=== PATIENT | female | born 1990 | race African-American/Black ===

== ENCOUNTER 2016-10-12 22:46 | Emergency (ER) | payer MEDICARE ==
[2012-12-14 12:55] VITALS: BMI 21.0
[2016-10-13 00:39] LABS: BASOPHILS 0.2 % (0.0-2.0); EOSINOPHILS 0.6 % (0-7); HEMATOCRIT 38.9 % (36.0-48.0); HEMOGLOBIN 13.4 g/dL (12-16); IMMATURE GRANULOCYTES 0.2 % (0-5); LYMPHOCYTES 13.3 % (15-50); MCH 29.4 pg (26.0-34.0); MCHC 34.4 g/dL (31.0-37.0); MCV 85.3 fL (80.0-100.0); MEAN PLATELET VOLUME 9.6 fL (7.4-10.4); NEUTROPHILS 80.7 % (40-80); RBC 4.56 10x6/uL (4.00-5.40); WBC 9.3 10x3/uL (4.8-10.8)
[2016-10-13 00:54] LABS: PLATELET COUNT 257 10x3/uL (130-400)
[2016-10-13 00:55] LABS: APPEARANCE HAZY (CLEAR); BACTERIA NONE SEEN /hpf (NONE SEEN); BILIRUBIN NEGATIVE (NEGATIVE); COLOR DK YELLOW (YELLOW); EPITHELIAL CELLS 0-5 /hpf (0-5); GLUCOSE NEGATIVE (NEGATIVE); KETONE LARGE mg/dL (NEGATIVE); LEUKOCYTE ESTERASE NEGATIVE (NEGATIVE); NITRITE NEGATIVE (NEGATIVE); PROTEIN TRACE mg/dL (NEGATIVE); RED CELLS - URINE 0-5 /hpf (0-5); SPECIFIC GRAVITY 1.025 (1.005-1.020); UROBILINOGEN NORMAL (NORMAL); WHITE CELLS - URINE 0-5 /hpf (0-5)
[2016-10-13 01:01] LABS: HCG SERUM POSITIVE (NEGATIVE)
[2016-10-13 01:36] LABS: ALBUMIN 4.2 g/dL (3.4-5.0); ALKALINE PHOSPHATASE 50 U/L (46-116); ALT (SGPT) 15 U/L (10-68); AMYLASE - SERUM 115 U/L (25-115); BILIRUBIN - TOTAL 0.37 mg/dL (0.2-1.3); CALC OSMOLALITY 274 mosm/kg (275-300); CHLORIDE - SERUM 103 mmol/L (98-107); CREATININE - SERUM 0.7 mg/dL (0.6-1.3); GLUCOSE 124 mg/dL (74-106); HCG - QUANTITATIVE (MATERNAL) 44174 mIU/mL; LIPASE 233 U/L (73-393); POTASSIUM - SERUM 3.7 mmol/L (3.5-5.1); PROTEIN - SERUM 7.9 g/dL (6.4-8.2); SODIUM 138 mmol/L (136-145); UREA NITROGEN 8 mg/dL (7-18); eGFR NON AFRICAN AMERICAN > 90 mL/min (90-120)
== END 2016-10-13 01:32 | disposition home or self-care (01) ==
LOC: D.ER 22:46
PROVIDERS: Family Medicine
DX: R11.10 Vomiting, unspecified (principal)

== ENCOUNTER 2016-10-14 11:24 | Emergency (ER) | payer MEDICARE ==
[2012-12-14 12:55] VITALS: BMI 21.0
== END 2016-10-14 13:53 | disposition home or self-care (01) ==
LOC: D.ER 11:24
DX: N76.0 Acute vaginitis (principal); R11.10 Vomiting, unspecified

== ENCOUNTER 2016-11-29 15:50 | Emergency (ER) | payer MEDICARE ==
[2012-12-14 12:55] VITALS: BMI 21.0
[2016-11-29 16:37] LABS: BASOPHILS 0.1 % (0-2); EOSINOPHILS 0.2 % (0-7); HEMATOCRIT 39.4 % (36.0-48.0); HEMOGLOBIN 13.7 g/dL (12-16); IMMATURE GRANULOCYTES 0.3 % (0-5); LYMPHOCYTES 15.6 % (15-50); MCH 29.5 pg (26.0-34.0); MCHC 34.8 g/dL (31.0-37.0); MCV 84.9 fL (80.0-100.0); MEAN PLATELET VOLUME 9.5 fL (7.4-10.4); MONOCYTES 6.7 % (2-11); NEUTROPHILS 77.1 % (40-80); PLATELET COUNT 264 10x3/uL (130-400); RBC 4.64 10x6/uL (4.00-5.40); RDW 12.9 % (11.5-14.5); WBC 9.2 10x3/uL (4.8-10.8)
[2016-11-29 16:52] LABS: ALBUMIN 4.1 g/dL (3.4-5.0); ALKALINE PHOSPHATASE 53 U/L (46-116); ALT (SGPT) 20 U/L (10-68); BILIRUBIN - TOTAL 0.29 mg/dL (0.2-1.3); CALC OSMOLALITY 269 mosm/kg (275-300); CALCIUM 9.8 mg/dL (8.5-10.1); CARBON DIOXIDE 26.3 mmol/L (21.0-32.0); CHLORIDE - SERUM 100 mmol/L (98-107); CREATININE - SERUM 0.8 mg/dL (0.6-1.3); GLUCOSE 96 mg/dL (74-106); POTASSIUM - SERUM 3.2 mmol/L (3.5-5.1); PROTEIN - SERUM 7.8 g/dL (6.4-8.2); SODIUM 136 mmol/L (136-145); UREA NITROGEN 8 mg/dL (7-18); eGFR NON AFRICAN AMERICAN > 90 mL/min (90-120)
== END 2016-11-29 20:39 | disposition home or self-care (01) ==
LOC: D.ER 15:50
PROVIDERS: Emergency Medicine
DX: O21.0 Mild hyperemesis gravidarum (principal); Z3A.15 15 weeks gestation of pregnancy

== ENCOUNTER → 2017-04-02 14:19 | Outpatient (CLI) | payer MEDICARE ==
[2012-12-14 12:55] VITALS: BMI 21.0
== END | disposition home or self-care (01) ==
LOC: D.LDO 14:19
DX: O36.5930 Maternal care for other known or suspected poor fetal growth, third trimester, not applicable or unspecified (principal); Z3A.30 30 weeks gestation of pregnancy

== ENCOUNTER → 2017-04-05 13:49 | Outpatient (CLI) | payer MEDICARE ==
[2012-12-14 12:55] VITALS: BMI 21.0
== END | disposition home or self-care (01) ==
LOC: D.LDO 13:49
DX: O36.5930 Maternal care for other known or suspected poor fetal growth, third trimester, not applicable or unspecified (principal); Z3A.31 31 weeks gestation of pregnancy

== ENCOUNTER → 2017-04-08 19:29 | Outpatient (CLI) | payer MEDICARE ==
[2012-12-14 12:55] VITALS: BMI 21.0
== END | disposition home or self-care (01) ==
LOC: D.LDO 19:29
DX: Z34.90 Encounter for supervision of normal pregnancy, unspecified, unspecified trimester (principal)

== ENCOUNTER → 2017-04-17 13:45 | Outpatient (CLI) | payer MEDICARE ==
[2012-12-14 12:55] VITALS: BMI 21.0
== END | disposition home or self-care (01) ==
LOC: D.LDO 13:45
DX: O36.5930 Maternal care for other known or suspected poor fetal growth, third trimester, not applicable or unspecified (principal); Z3A.32 32 weeks gestation of pregnancy

== ENCOUNTER → 2017-04-30 15:30 | Outpatient (CLI) | payer MEDICARE ==
[2012-12-14 12:55] VITALS: BMI 21.0
[~2017-04-30 15:30] MED LIST: PRENAVITE1 TAB PO; TYLENOL W/CODEI1 TAB PO
[2017-06-03 00:10] VITALS: BMI 26.7
== END | disposition home or self-care (01) ==
LOC: D.LDO 15:30
DX: O36.5930 Maternal care for other known or suspected poor fetal growth, third trimester, not applicable or unspecified (principal); Z3A.34 34 weeks gestation of pregnancy

== ENCOUNTER → 2017-05-04 12:10 | Outpatient (CLI) | payer MEDICARE ==
[2012-12-14 12:55] VITALS: BMI 21.0
[2017-06-03 00:10] VITALS: BMI 26.7
== END | disposition home or self-care (01) ==
LOC: D.LDO 12:10
DX: O36.5930 Maternal care for other known or suspected poor fetal growth, third trimester, not applicable or unspecified (principal); Z3A.35 35 weeks gestation of pregnancy

== ENCOUNTER → 2017-05-07 12:49 | Outpatient (CLI) | payer MEDICARE ==
[2012-12-14 12:55] VITALS: BMI 21.0
[2017-06-03 00:10] VITALS: BMI 26.7
== END | disposition home or self-care (01) ==
LOC: D.LDO 12:49
DX: O26.893 Other specified pregnancy related conditions, third trimester (principal); Z3A.35 35 weeks gestation of pregnancy

== ENCOUNTER → 2017-05-11 10:04 | Outpatient (CLI) | payer MEDICARE ==
[2012-12-14 12:55] VITALS: BMI 21.0
[2017-06-03 00:10] VITALS: BMI 26.7
== END | disposition home or self-care (01) ==
LOC: D.LDO 10:04
DX: O36.5930 Maternal care for other known or suspected poor fetal growth, third trimester, not applicable or unspecified (principal); Z3A.36 36 weeks gestation of pregnancy

== ENCOUNTER 2017-06-02 20:22 | Inpatient (IN) | payer MEDICARE ==
[~2017-06-02] VITALS: Ht 170.2 cm; Wt 77.1 kg
[2017-06-02 20:50] LABS: APPEARANCE HAZY (CLEAR); BILIRUBIN NEGATIVE (NEGATIVE); COLOR YELLOW (YELLOW); GLUCOSE NEGATIVE (NEGATIVE); KETONE NEGATIVE (NEGATIVE); NITRITE NEGATIVE (NEGATIVE); PROTEIN NEGATIVE (NEGATIVE); UROBILINOGEN NORMAL (NORMAL)
[2017-06-02] MEDS ORDERED: PRENAVITE1 TAB PO (20:53)
[2017-06-02 20:54] LABS: UDS - AMPHET NEGATIVE QUAL (NEGATIVE); UDS - BARB NEGATIVE QUAL (NEGATIVE); UDS - BENZO NEGATIVE QUAL (NEGATIVE); UDS - COCAINE NEGATIVE QUAL (NEGATIVE); UDS - OPIATE NEGATIVE QUAL (NEGATIVE); UDS - PCP NEGATIVE QUAL (NEGATIVE); UDS - THC POSITIVE QUAL (NEGATIVE)
[2017-06-02 20:57] LABS: BACTERIA MODERATE /hpf (NONE SEEN); RED CELLS - URINE 0-5 /hpf (0-5)
[2017-06-03 00:10] VITALS: BP 118/58; Ht 170.2 cm; Wt 77.1 kg
[2017-06-03 00:47] LABS: HEMATOCRIT 31.9 % (36.0-48.0); HEMOGLOBIN 10.5 g/dL (12-16); MCH 28.4 pg (26.0-34.0); MCHC 32.9 g/dL (31.0-37.0); MCV 86.2 fL (80.0-100.0); MEAN PLATELET VOLUME 9.6 fL (7.4-10.4); RBC 3.7 10x6/uL (4.00-5.40); RDW 12.9 % (11.5-14.5); WBC 12.8 10x3/uL (4.8-10.8)
--- NOTE | 2017-06-03 01:15 | NUR ---
PT TRANSFERRED TO ROOM 1257. SHOWERED BEFORE TRANSFER. ASSISTED TO BED. FRESH ICE WATER PROVIDED. S/O PRESENT IN ROOM AND SUPPORTIVE. BED IN LOWEST POSITION CALL LIGHT IN REACH. BIBI ARMANDO
--- NOTE | 2017-06-03 02:15 | NUR ---
PT C/O PAIN 01/28. MEDICATED WITH TYLENOL WITH CODEINE AT THIS TIME. SEE E-MAR FOR DOCUMENTATION. BIBI ARMANDO
--- NOTE | 2017-06-03 03:35 | NUR ---
ROOM CHECK, PT RESTING WITH EYES CLOSED. AWAKENS EASILY WITH VERBAL STIMULI. DENIES NEEDS AT THIS TIME. BIBI ARMANDO
--- NOTE | 2017-06-03 05:05 | NUR ---
PT RESTING WITH EYES CLOSED. RESP EVEN AND UNLABORED. BIBI ARMANDO
--- NOTE | 2017-06-03 06:58 | NUR ---
This rn along with Gina Garcia rn to room for bedside report but pt was sleeping with no distress. Left undisturbed at this time, report finished outside of pt room. Side rails noted to be up x 2 with bed low and call light in reach.
[2017-06-03 09:30] VITALS: BP 104/68
--- NOTE | 2017-06-03 09:30 | NUR ---
Pt awake and walking about room. Infant in crib at bedside. When questioned aobut pain pt rates at 7/10 since getting up and walking. Pain med offered and pt is agreeable. Assessment and vital signs as charted on flowsheet. Denies clots or heavy bleeding with voids. request large orange juice but otherwise no needs voiced.
--- NOTE | 2017-06-03 09:45 | NUR ---
Pain med given as charted on emar. Pt ask for only 1 tylenol #3, stating she did not want to be "really sleepy" Whiteboard updated with nurses/numbers, pain med times and goals. Pt denies any questions or concerns about plan of care at this time. Side rails up x 2 with phone and call light in reach.
--- NOTE | 2017-06-03 10:37 | NUR ---
infant taken back to room via crib by nursery nurse.
--- NOTE | 2017-06-03 13:30 | NUR ---
SBAR HANDOFF RECEIVED FROM Martin ARIAS RN. REMAINS STABLE IN ROOM. AMBULATION IN ROOM AND KELLY. REPORTS BURNING AT PERINEUM WHEN VOIDING; USING BETADINE MIX WITH WATER FOR PERINEAL CLEANSING AFTER EACH VOID. REPORTS FULLY SATURATED LESLYE PADS X 2 PER HOUR. FUNDUS FIRM AT UMBILICUS. DEMONSTRATES SKILL IN CHECKING AND MASSAGING FUNDUS IF BOGGY. REPORTS PAIN AT LEVEL 5 ON 0-10 SCALE. NO SIGNS OF RESP OR OTHER DISTRESS. BONDING WELL WITH INFANT.
--- NOTE | 2017-06-03 13:33 | NUR ---
Baby's Full Name: Michelle Tapia MOB: Jason Wood FOB: Thor Tapia Parachute Supervisor: Dr. Karlee Vaughan CM met with MOB, infant in her arms. LUCIA reports she lives with her mother, Kamryn Wood and her grandfather. She reports this is her first child. She reports she is disabled, on SSI. She reports FOB is involved. She reports her home is a safe environment with all working utilities. Confirmed home address and phone number on face sheet. She reports she has reliable transportation and a car seat for . She plans to apply for WIC once she is discharged from the hospital. She currently receives SNAP Benefits. She plans to bottle feed baby with formula. She states she has all necessary supplies for baby including diapers, clothing, bottles & crib. Discussed THC+ UDS. She reports she has used THC for approximately 8 years. She states she planned to stop when she found out she was but didn't want to cause harm to the baby by stopping abruptly. She states she continued to use it because "it keeps me at ease & eating", "I had terrible nausea". Explained [facility] referral has been made by nursing as required by Norberto's Law. Verbalized understanding. Spoke with nursery RN who states she is expecting a visit from [facility] this afternoon. CM will follow & assist as needed.
--- NOTE | 2017-06-03 14:15 | NUR ---
TYLENOL #3 X1 TAB GIVEN FOR PAIN RATED 5/10. PT REQUESTS ONLY HALF DOSE FOR PAIN IN ABD AND "BURNING" IN VAGINAL AREA. PT DENIES FURTHER NEEDS AT THIS TIME. WILL CONT TO MONITOR.
--- NOTE | 2017-06-03 14:45 | NUR ---
MOTHER STATES SHE HAS NOT SATURATED PERIPAD SINCE 1330. REMINDED TO KEEP PAD COUNT.
--- NOTE | 2017-06-03 15:17 | NUR ---
REPORTS CONTINUED PAIN AND REQUESTING ADDITIONAL PAIN MEDS. PO MEDS GIVEN PER ORDERS. TOWELS PROVIDED FOR SHOWER WITH INSTRUCTIONS. VISITORS TO ROOM.
--- NOTE | 2017-06-03 15:17 | NUR ---
ON PAIN REASSESSMENT, PT REPORTS PAIN 5 OUT OF 10 ON PAIN SCALE. REQUESTING ADDITIONAL PAIN MEDICATION CITING HAS BEEN WAITING TO NOT HURTSO MUCH TO TAKE A SHOWER. ADDITIONAL TYLENOL #3 GIVEN WELL MOTRIN AT THIS TIME. DISCUSSED PERICARE AND SHOWERING, QUESTIONS ANSWERED. C/L IN EASY REACH. INSTRUCTED TO NOTIFY STAFF IF NO RELIEF IN 30 MINUTES. VISITORS TO ROOM. STATES UNDERSTANDING.
--- NOTE | 2017-06-03 16:17 | NUR ---
PT AAOX3, AMBULATORY IN ROOM, SHOWERED, ADDITIONAL PILLOW PROVIDED UPON REQUEST, PAIN REASSESSMENT COMPLETED, STATES ADDITIONAL MEDS PROVIDED MUCH BETTER RELIEF. VISITORS TO ROOM.
--- NOTE | 2017-06-03 17:00 | NUR ---
PATIENT AWAKE AND ALERT SITTING UP IN BED HOLDING BABY. PATIENT REPORTS LOCHIA STILL HEAVY. NURSE OBSERVED LESLYE PAD IN BATHROOM 90% SATURATED THAT WAS CHANGED AROUND 3PM. MOM REPORTED THAT IT HAS DECREASED SOMEWHAT. FUNDUS FIRM AND BELOW UMB. MOM HAS BEEN AMBULATING IN ROOM WITHOUT REPORTS OF WEAKNESS OR DIZZINESS.
--- NOTE | 2017-06-03 17:45 | NUR ---
PATIENT AMBULATORY IN KELLY. SHE STATED SHE WAS GOING TO GO OUTSIDE FOR A FEW MINUTES. PATIENT ACCOMPANIED BY SIGNIFICANT OTHER.
--- NOTE | 2017-06-03 18:00 | NUR ---
PATIENT TO NURSERY TO TAKE BABY BACK TO ROOM.
--- NOTE | 2017-06-03 19:40 | NUR ---
PT RECEIVED TO MY CARE IN ROOM 1257. PT RESTING IN BED IN SEMI-FOWLERS POSITION, IN NO ACUTE DISTRESS. PT IS A 26YO G2 NOW WITH OF VIABLE MALE YESTERDAY @ 2353. @ 39.3WKS GESTATION. DELIVERY COMPLICATED BY 1ST DEGREE VAGINAL LACERATION, WITH NO REPAIR, AND PRECIPITOUS DELIVERY. AAOX3. LUNGS CTAB. HR REGULAR. ABDOMEN SOFT AND NON TENDER TO PALPATION. FUNDUS FIRM AND ML @ U/-2. LOCHIA RUBRA SMALL. PERINIUM APPEARS TO BE INTACT WITH MINIMAL SWELLING NOTED. LESLYE PAD AND PANTIES IN PLACE. PT DENIES DIFFICULTY VOIDING. STATES SHE HAS PASSED GAS SINCE BUT HAS NOT HAD A BM. PT TOLERATING REGULAR DIET. NO SWELLING NOTED TO UPPER OR LOWER EXTREMITIES BILATERALLY. NO IV ACCESS. PT C/O PAIN, RATES 7/10, REQUESTS MEDICATION. 2 TABS TYLENOL #3 PROVIDED TO PT AT THIS TIME. PT DENIES ANY FURTHER NEEDS. BED IN LOW POSITION, SIDE RAILS UP TIMES 2, CALL LIGHT AND PHONE IN REACH. SO REMAINS AT PT BS FOR SUPPORT AND ASSISTANCE. INFANT REMAINS AT PT BS FOR COUPLET CARE. WILL CONT TO MONITOR PT STATUS.
[2017-06-03 19:46] VITALS: BP 121/78
--- NOTE | 2017-06-03 20:29 | NUR ---
RN TO PT BS FOR ROUNDS. PT RESTING IN BED IN SEMI-FOWLERS POSITION, HOLDING . PT IN NO ACUTE DISTRESS. REASSESS OF PT PAIN LEVEL 10/29. PT DENIES ANY NEEDS AT THIS TIME. BED IN LOW POSITION, SIDE RAILS UP TIMES 2, CALL LIGHT AND PHONE IN REACH. SO REMAINS AT PT BS FOR SUPPORT AND ASSISTANCE. REMAINS AT PT BS FOR COUPLET CARE. WILL CONT TO MONITOR PT STATUS.
--- NOTE | 2017-06-03 21:34 | NUR ---
PT AMBULATES TO LABOR AND DELIVERY DESK. AT LABOR AND DELIVERY DESK, SWADDLED IN OPEN CRIB, FOR OBSERVATION. PT TRANSPORTS VIA CRIB TO PP ROOM. PT DENIES ANY NEEDS AT THIS TIME. SO REMAINS WITH PT FOR SUPPORT AND ASSISTANCE. WILL CONT TO MONITOR PT STATUS.
--- NOTE | 2017-06-03 23:06 | NUR ---
RN TO PT BS FOR ROUNDS. PT RESTING IN BED IN SEMI-FOWLERS POSITION, HOLDING . PT IN NO ACUTE DISTRESS. PT DENIES ANY NEEDS AT THIS TIME. BED IN LOW POSITION, SIDE RAILS UP TIMES 2, CALL LIGHT AND PHONE IN REACH. SO REMAINS AT PT BS FOR SUPPORT AND ASSISTANCE. INFANT REMAINS AT PT BS FOR COUPLET CARE. WILL CONT TO MONITOR PT STATUS.
--- NOTE | 2017-06-03 23:45 | NUR ---
RN CALLED TO PT BS. PT C/O PAIN, RATES 01/28, REQUESTS MEDICATION. 1 TAB IBUPROFEN AND 2 TABS TYLENOL #3 PROVIDED TO PT. PT DENIES ANY FURTHER NEEDS AT THIS TIME. PT REQUESTS INFANT BE TRANSPORTED TO NURSERY FOR OBSERVATION. BED IN LOW POSITION, SIDE RAILS UP TIMES 2, CALL LIGHT AND PHONE IN REACH. SO REMAINS AT PT BS FOR SUPPORT AND ASSISTANCE. INFANT TRANSPORTED TO LABOR AND DELIVERY DESK, VIA OPEN CRIB FOR OBSERVATION PER PT REQUEST. REPORT GIVEN TO NURSERY RN.
--- NOTE | 2017-06-04 01:35 | NUR ---
RN TO PT BS FOR ROUNDS. PT SITTING IN BED, HOLDING , IN NO ACUTE DISTRESS. PT REQUESTS INFANT BE TRANSFERED TO NURSERY FOR OBSERVATION TO ALLOW HER TO REST. PT DENIES ANY FURTHER NEEDS. BED IN LOW POSITION, SIDE RAILS UP TIMES 2, CALL LIGHT AND PHONE IN REACH. SO REMAINS AT PT BS FOR SUPPORT AND ASSISTANCE. INFANT TRANSPORTED TO LABOR AND DELIVERY DESK, VIA OPEN CRIB, FOR OBSERVATION, PER PT REQUEST. REPORT GIVEN TO ALAINA ARMANDO. WILL CONT TO MONITOR PT STATUS.
--- NOTE | 2017-06-04 06:03 | NUR ---
INFANT TRANSPORTED TO PT'S ROOM, VIA OPEN CRIB, FOR BOTTLE FEED. PT RESTING IN BED IN FOWLERS POSITION, WITH EYES CLOSED, IN NO ACUTE DISTRESS. RESPIRATIONS EVEN AND UNLABORED. PT WAKES EASILY WHEN SPOKEN TO. ID BANDS VERIFIED TIMES 2 AND BOTTLE PROVIDED TO PT TO FEED. PT DENIES ANY FURTHER NEEDS AT THIS TIME. BED IN LOW POSITION, SIDE RAILS UP TIMES 2, CALL LIGHT AND PHONE IN REACH. SO REMAINS AT PT BS FOR SUPPORT AND ASSISTANCE. WILL CONT TO MONITOR PT STATUS.
--- NOTE | 2017-06-04 06:22 | NUR ---
RN TO PT BS TO ASSESS FEEDING EFFORT. AT THIS TIME, HAS BOTTLE FED 15ML. PT STATES SHE WILL CONTINUE TO ATTEMPT TO FEED . REPORT GIVEN TO NURSERY RN. PT DENIES ANY NEEDS AT THIS TIME. BED IN LOW POSITION, SIDE RAILS UP TIMES 2, CALL LIGHT AND PHONE IN REACH. SO REMAINS AT PT BS FOR SUPPORT AND ASSISTANCE. REMAINS AT PT BS FOR BOTTLE FEED. WILL CONT TO MONITOR PT STATUS AND GIVE REPORT TO AM SHIFT.
[2017-06-04 07:26] LABS: RAPID PLASMA REAGIN Non Reactive (Non Reactive)
--- NOTE | 2017-06-04 07:27 | OP ---
PATIENT NAME: JACQUI SEGOVIA MEDICAL RECORD: [id number] :90 LOCATION:[id number] ADMISSION DATE:06/02/17 SURGEON: YOLANDA RUIZ MD DATE OF OPERATION: 06/03/2017 PREDELIVERY DIAGNOSES: 1. at 39 weeks' gestation. 2. Active labor. POSTDELIVERY DIAGNOSIS: Mother delivered at term RESPONSIBLE PHYSICIAN: Yolanda Ruiz MD EVENTS OF DELIVERY: The patient was in observation and given 50 mg of Demerol. After 1 hour, the patient has gone from 1 to complete. Upon arrival, the is being delivered. The placenta was then delivered intact. Apgars of the male infant, 9 and 9. Weight 6 pounds 4 ounces. First-degree laceration without repair. ESTIMATED BLOOD LOSS: Less than or equal to 300 cc. DISPOSITION: Mother and infant recovered in the room. TRANSINT:[id number] Voice Confirmation ID: [id number] DOCUMENT ID: [id number] YOLANDA RUIZ MD at 0727 CC: [id number] DICTATION DATE: 06/03/17 001 EDUCATION OFFICER: 06/03/17 0041 ADM IN [facility] [address] [place] [address]
[2017-06-04 07:30] VITALS: BP 118/78
--- NOTE | 2017-06-04 07:30 | NUR ---
DR JAMA VISITS WITH PT.
--- NOTE | 2017-06-04 07:30 | NUR ---
RECEIVED PT SITTING UPRIGHT IN BED CARING FOR . AAO X 3. VSS. HRRR WITHOUT AUDIBLE MURMUR. BBS CLEAR. BS X 4. ABDOMEN SOFT/NON-DISTENDED. STATES PASSING GAS AND HAS HAD BM SINCE DELIVERY. FUNDUS FIRM AT U/2. RUBRA LOCHIA SMALL AMT. PT DENIES HEAVY BLEEDING OR PASSING CLOTS. NEG HOMANS' SIGN. PPP. NO EDEMA NOTED BLE. PERINEUM WITHOUT EDEMA NOTED. PT DENIES C/O OR NEEDS. SR UPX 2. CALL LIGHT IN REACH.
[2017-06-04] MEDS ORDERED: TYLENOL W/CODEI1 TAB PO (09:42)
--- NOTE | 2017-06-04 09:58 | NUR ---
INFLUENZA VACCINE 0.5 ML GIVEN IM TO RIGHT DELTOID. BANDAID TO SITE. TDAP 0.5 ML GIVEN IM TO LEFT DELTOID. BANDAID TO SITE. PT INSTRUCTED ON MEDS. VERBALIZES UNDERSTANDING.
--- NOTE | 2017-06-04 10:08 | NUR ---
DISCHARGE INSTRUCTIONS GIVEN TO PT. PT VERBALIZES UNDERSTANDING OF ALL INSTRUCTIONS. COPIES GIVEN TO PT. PT GIVEN RX FOR TYLENOL #3. PT AWAITS INFANT'S DISCHARGE.
--- NOTE | 2017-06-04 10:30 | NUR ---
PT READY FOR DISCHARGE. DISCHARGED IN STABLE CONDITION WITH VIA WHEELCHAIR PER AUXILIARY STAFF TO PRIVATE VEHICLE.
== END 2017-06-04 10:30 | disposition home or self-care (01) | DRG 775 ==
LOC: D.LDO 20:22 → D.LD 23:30
PROVIDERS: ADMIT Obstetrics & Gynecology
PROC: 10E0XZZ Delivery of Products of Conception, External Approach (ICD-10-PCS; principal; 2017-06-03)
DX: O70.0 First degree perineal laceration during delivery (principal); Z3A.39 39 weeks gestation of pregnancy; Z37.0 Single live birth

== ENCOUNTER 2018-03-10 11:59 | Emergency (ER) | payer MEDICARE ==
[~2018-03-10] VITALS: Ht 170.2 cm; Wt 88.5 kg
[~2018-03-10 11:59] MED LIST changes: +CYCLOBENZAPRINE5 MG; +TYLENOL W/CODEI1 TAB
[2018-03-10 12:03] VITALS: BP 127/70; Ht 170.2 cm; Wt 88.5 kg
== END 2018-03-10 13:14 | disposition left against medical advice (07) ==
LOC: D.ER 11:59
DX: M53.3 Sacrococcygeal disorders, not elsewhere classified (principal)

== ENCOUNTER 2018-03-12 08:13 | Emergency (ER) | payer MEDICARE ==
[~2018-03-12] VITALS: Ht 170.2 cm; Wt 84.1 kg
[2018-03-12 08:23] VITALS: Ht 170.2 cm; Wt 84.1 kg
[2018-03-12 09:15] LABS: APPEARANCE SL CLDY (CLEAR); BILIRUBIN NEGATIVE (NEGATIVE); COLOR YELLOW (YELLOW); GLUCOSE NEGATIVE (NEGATIVE); KETONE NEGATIVE (NEGATIVE); NITRITE NEGATIVE (NEGATIVE); PROTEIN NEGATIVE (NEGATIVE); SPECIFIC GRAVITY 1.015 (1.005-1.020); UROBILINOGEN NORMAL (NORMAL)
[2018-03-12 09:22] LABS: BACTERIA MANY /hpf (NONE SEEN); MUCUS <1+ /lpf (NONE SEEN); RED CELLS - URINE 0-5 /hpf (0-5)
[2018-03-12 09:58] VITALS: BP 118/77
== END 2018-03-12 09:54 | disposition home or self-care (01) ==
LOC: D.ER 08:13
PROVIDERS: Family Medicine
DX: O26.899 Other specified pregnancy related conditions, unspecified trimester (principal); Z3A.00 Weeks of gestation of pregnancy not specified; M54.5 Low back pain; F17.200 Nicotine dependence, unspecified, uncomplicated

== ENCOUNTER 2018-03-26 22:38 | Outpatient (CLI) | payer MEDICARE ==
[2018-03-12 08:23] VITALS: BMI 29.0
[2018-03-26 23:21] LABS: APPEARANCE HAZY (CLEAR); BILIRUBIN NEGATIVE (NEGATIVE); COLOR YELLOW (YELLOW); GLUCOSE 100 mg/dL (NEGATIVE); KETONE SMALL mg/dL (NEGATIVE); NITRITE NEGATIVE (NEGATIVE); PROTEIN NEGATIVE (NEGATIVE); SPECIFIC GRAVITY 1.025 (1.005-1.020); UROBILINOGEN NORMAL (NORMAL)
[2018-03-26 23:22] LABS: RED CELLS - URINE 0-5 /hpf (0-5); WHITE CELLS - URINE 0-5 /hpf (0-5)
[2018-03-26 23:23] LABS: BACTERIA FEW /hpf (NONE SEEN); MUCUS >1+ /lpf (NONE SEEN)
[2018-03-26 23:24] LABS: UDS - AMPHET NEGATIVE QUAL (NEGATIVE); UDS - BARB NEGATIVE QUAL (NEGATIVE); UDS - BENZO NEGATIVE QUAL (NEGATIVE); UDS - COCAINE NEGATIVE QUAL (NEGATIVE); UDS - OPIATE POSITIVE QUAL (NEGATIVE); UDS - PCP NEGATIVE QUAL (NEGATIVE); UDS - THC NEGATIVE QUAL (NEGATIVE)
== END 2018-03-27 01:21 ==
LOC: D.LDO 22:38
PROVIDERS: Obstetrics & Gynecology
DX: O26.893 Other specified pregnancy related conditions, third trimester (principal); Z3A.36 36 weeks gestation of pregnancy

== ENCOUNTER 2018-04-09 20:55 | Inpatient (IN) | payer MEDICARE ==
[~2018-04-09] VITALS: Ht 170.2 cm; Wt 87.1 kg
--- NOTE | ~2018-04-09 | DS ---
PATIENT:JACQUI SEGOVIA :90 MEDICAL RECORD: [id number] DISCHARGE SUMMARY ADMISSION DATE: 04/09/18 DISCHARGE DATE: 04/11/18 DATE OF ADMISSION: 04/09/2018 DATE OF DISCHARGE: 04/11/2018 ADMISSION DIAGNOSIS: Term . DISCHARGE DIAGNOSIS: Mother delivered at term. PROCEDURE: Induction of labor with vaginal delivery. ATTENDING: Yolanda Jama MD HISTORY OF PRESENT ILLNESS: See the H&P in the chart. SUMMARY OF HOSPITALIZATION: The patient was admitted and underwent induction of labor without incident. The patient went on to deliver vaginally. At the time of discharge, the infant needs to be held over for observation. The patient desires discharge to sleeper status. The patient's discharge medication will be Tylenol #3 for post- cramping. The patient has been given the standard precautions and will follow up at 6-week [facility] at [facility]. The patient's tubal was unable to be performed at this time due to insurance coverage. The patient will be applying for supplemental benefits to cover the cost of tubal. TRANSINT:[id number] Voice Confirmation ID: [id number] DOCUMENT ID: [id number] YOLANDA JAMA MD at 1126 CC: [id number] DICTATION DATE: 04/11/18 1213 MEDICAL INSURANCE COLLECTOR: 04/11/18 1221 DIS IN 04/11/18 [facility] [address] [place] [address]
[2018-04-09 21:59] VITALS: BP 122/84; BMI 30.1
[2018-04-09 22:00] LABS: HEMATOCRIT 29.3 % (36.0-48.0); HEMOGLOBIN 9.8 g/dL (12-16); MCH 27.7 pg (26.0-34.0); MCHC 33.4 g/dL (31.0-37.0); MCV 82.8 fL (80.0-100.0); RBC 3.54 10x6/uL (4.00-5.40); RDW 13.2 % (11.5-14.5); WBC 8.3 10x3/uL (4.8-10.8)
[2018-04-09 22:18] LABS: UDS - AMPHET NEGATIVE QUAL (NEGATIVE); UDS - BARB NEGATIVE QUAL (NEGATIVE); UDS - BENZO NEGATIVE QUAL (NEGATIVE); UDS - COCAINE NEGATIVE QUAL (NEGATIVE); UDS - OPIATE NEGATIVE QUAL (NEGATIVE); UDS - PCP NEGATIVE QUAL (NEGATIVE); UDS - THC NEGATIVE QUAL (NEGATIVE)
[2018-04-09 22:21] LABS: APPEARANCE CLEAR (CLEAR); BILIRUBIN NEGATIVE (NEGATIVE); COLOR YELLOW (YELLOW); GLUCOSE NEGATIVE (NEGATIVE); KETONE NEGATIVE (NEGATIVE); NITRITE NEGATIVE (NEGATIVE); PROTEIN NEGATIVE (NEGATIVE); UROBILINOGEN NORMAL (NORMAL)
[2018-04-10 09:08] VITALS: Ht 170.2 cm; Wt 87.1 kg
[2018-04-10 19:19] VITALS: BP 117/79
[2018-04-11 03:40] LABS: HEMATOCRIT 27.5 % (36.0-48.0); HEMOGLOBIN 9.2 g/dL (12-16); MCH 27.7 pg (26.0-34.0); MCHC 33.5 g/dL (31.0-37.0); MCV 82.8 fL (80.0-100.0); MEAN PLATELET VOLUME 9.4 fL (7.4-10.4); RBC 3.32 10x6/uL (4.00-5.40); RDW 13.2 % (11.5-14.5); WBC 9.2 10x3/uL (4.8-10.8)
[2018-04-11 05:54] VITALS: BP 118/60
[2018-04-11 07:30] VITALS: BP 122/76
[2018-04-11 07:37] LABS: RAPID PLASMA REAGIN Non Reactive (Non Reactive)
[2018-04-11] MEDS ORDERED: TYLENOL W/CODEI1 TAB PO (13:02)
== END 2018-04-11 13:10 | disposition home or self-care (01) | DRG 775 ==
LOC: D.LD 20:55
PROVIDERS: Obstetrics & Gynecology
PROC: 3E033VJ Introduction of Other Hormone into Peripheral Vein, Percutaneous Approach (ICD-10-PCS; 2018-04-09)
PROC: 10E0XZZ Delivery of Products of Conception, External Approach (ICD-10-PCS; principal; 2018-04-10)
DX: O99.334 Smoking (tobacco) complicating childbirth (principal); Z3A.38 38 weeks gestation of pregnancy; Z37.0 Single live birth; O69.81X0 Labor and delivery complicated by cord around neck, without compression, not applicable or unspecified; O99.344 Other mental disorders complicating childbirth; F41.8 Other specified anxiety disorders

== ENCOUNTER 2019-12-09 22:19 | Inpatient (IN) | payer MEDICAID ==
[~2019-12-09] VITALS: Ht 170.2 cm; Wt 59.0 kg
[2019-12-09 22:38] LABS: BASOPHILS 0.1 % (0-2); EOSINOPHILS 0.6 % (0-7); HEMATOCRIT 40.3 % (36.0-48.0); HEMOGLOBIN 12.9 g/dL (12-16); IMMATURE GRANULOCYTES 0.1 % (0-5); LYMPHOCYTES 20.3 % (15-50); MCH 27.9 pg (26.0-34.0); MEAN PLATELET VOLUME 8.9 fL (7.4-10.4); MONOCYTES 6.2 % (2-11); NEUTROPHILS 72.7 % (40-80); RBC 4.63 10x6/uL (4.00-5.40); RDW 14.5 % (11.5-14.5); WBC 8.4 10x3/uL (4.8-10.8)
--- NOTE | 2019-12-09 22:46 | NUR ---
PT GIVEN WATER AND INFORMED TO FILL BLADDER FOR ULTRASOUND.
[2019-12-09 22:56] LABS: PLATELET COUNT 252 10x3/uL (130-400)
[2019-12-09 22:58] LABS: CALC OSMOLALITY 269 mosm/kg (275-300); CALCIUM 8.7 mg/dL (8.5-10.1); CARBON DIOXIDE 24.8 mmol/L (21.0-32.0); CHLORIDE - SERUM 103 mmol/L (98-107); CREATININE - SERUM 0.9 mg/dL (0.6-1.3); GLUCOSE 94 mg/dL (74-106); POTASSIUM - SERUM 3.1 mmol/L (3.5-5.1); SODIUM 136 mmol/L (136-145); UREA NITROGEN 7 mg/dL (7-18); eGFR NON AFRICAN AMERICAN 78 mL/min (90-120)
[2019-12-09 23:10] LABS: HCG SERUM POSITIVE (NEGATIVE)
[2019-12-09 23:13] LABS: ALBUMIN 3.8 g/dL (3.4-5.0); ALKALINE PHOSPHATASE 70 U/L (30-120); ALT (SGPT) 14 U/L (10-68); BILIRUBIN - TOTAL 0.58 mg/dL (0.2-1.3); HCG - QUANTITATIVE (MATERNAL) 518 mIU/mL; PROTEIN - SERUM 7.4 g/dL (6.4-8.2)
--- NOTE | 2019-12-10 00:04 | NUR ---
URINE SPECIMEN SENT TO LAB
[2019-12-10 00:29] LABS: UDS - AMPHET NEGATIVE QUAL (NEGATIVE); UDS - BARB NEGATIVE QUAL (NEGATIVE); UDS - BENZO NEGATIVE QUAL (NEGATIVE); UDS - COCAINE POSITIVE QUAL (NEGATIVE); UDS - OPIATE NEGATIVE QUAL (NEGATIVE); UDS - PCP NEGATIVE QUAL (NEGATIVE); UDS - THC POSITIVE QUAL (NEGATIVE)
[2019-12-10 00:37] LABS: BILIRUBIN NEGATIVE (NEGATIVE); GLUCOSE NEGATIVE (NEGATIVE); KETONE SMALL mg/dL (NEGATIVE); NITRITE NEGATIVE (NEGATIVE); UROBILINOGEN NORMAL (NORMAL)
[2019-12-10 00:39] LABS: WHITE CELLS - URINE 0-5 /hpf (NEGATIVE)
[2019-12-10 00:40] LABS: BACTERIA FEW /hpf (NEGATIVE); EPITHELIAL CELLS 0-5 /hpf (0-5)
[2019-12-10 01:54] VITALS: BP 103/58; Ht 170.2 cm; Wt 59.0 kg
--- NOTE | 2019-12-10 02:03 | NUR ---
PT REC'D FROM ER VIA W/C, REQUESTING BLANKETS, STATES JUST WANTS TO SLEEP, ADMITS TO HAVING PAIN MEDICATION WHILE IN ER MAKING HER DROWSY, NOTED STRONG ODOR OF [place], ER NURSE STATES TESTED POSITIVE FOR THC, TO SURGERY BED, WARM BLANKETS GIVEN, STATES IS FEELING RELIEF FROM PAIN, VSS, ASSESSMENT COMPLETED W/ PT FREQUENTLY DOZING OFF, RESPIRATIONS EVEN AND UNLABORED, DID NOT DISTURB FOR LIVING ARRANGEMENTS ASSESSMENT WILL HAVE NEXT SHIFT FOLLOW UP.
--- NOTE | 2019-12-10 02:12 | NUR ---
review of lab reveals positive for thc and cocaine. pt resting quietly, respirations even and unlabored, depends in place
--- NOTE | 2019-12-10 03:32 | NUR ---
well-being check, pt resting quietly in supine position w/ eyes closed, respirations even and unlabored, in no apparent distress. ivf infusing via pump at 100ml/hr. site wnl, did not disturb
[2019-12-10 04:55] VITALS: BP 108/63
--- NOTE | 2019-12-10 05:01 | NUR ---
wellness check, resting quietly w/ eyes closed, supine position, arouses easily to name called, allergy band applied to left arm after confirming allergic to pcn and phenergan, vss, ivf infusing at 100ml/hr via pump into 18 g left forearm. site wnl. returns to sleep quickly. lights dimmed
--- NOTE | 2019-12-10 07:11 | NUR ---
RN TO BEDSIDE FOR REPORT. PT LAYING ON L SIDE, RESP REGULAR AND UNLABORED, NO S/S OF DISTRESS NOTED. RESTING WITH EYES CLOSED. PT NOT DISTURBED TO ALLOW FOR REST. WILL CONTINUE TO MONITOR. BED IN LOW POSITION WITH SRUP X2. CALL LIGHT AND PHONE WITHIN REACH.
[2019-12-10 08:22] VITALS: BP 121/72
--- NOTE | 2019-12-10 08:22 | NUR ---
VSS. SHIFT ASSESSMENT COMPLETED PER FLOWSHEET. POC DISCUSSED WITH PT, VERBALIZES UNDERSTANDING AND DENIES QUESTIONDS. C/O ABD CRAMPING AND VAGINAL PRESSURE INTERMITTENTLY AT 8-9/10, REQUESTS INTERVENTIONS. WILL NOTIFY DR. JAMA. SCANT BRB VAGINAL BLEEDING NOTED, NO CLOTS AT THIS TIME NOTED, NO TISSUE NOTED. PT REPORTS THAT PASSED CLOTS AND TISSUE LAST PM. BED IN LOW POSITION WITH SRUP X2. CALL LIGHT AND PHONE WITHIN REACH. WILL CONTINUE TO MONITOR.
--- NOTE | 2019-12-10 08:34 | NUR ---
DR. JAMA NOTIFIED OF C/O INCREASED DISCOMFORT. ORDERS REC'D.
--- NOTE | 2019-12-10 08:54 | NUR ---
C/O ABD CRAMPING AND PRESSURE 8/10 INTERMITTENTLY. HYDROMORPHONE GIVEN PER ORDER, SEE EMAR, EDUCATED ON MED, VERBALIZES UNDERSTANDING AND DENIES QUESTIONS. CYTOTEC GIVEN. UPDATED ON POC, VERBALIZES UNDERSTANDING AND DENIES QUESTIONS. BED IN LOW POSITION WITH SRUP X2. CALL LIGHT AND PHONE WITHIN REACH. WILL CONTINUE TO MONITOR. PT INSTRUCTED ON FALL PRECAUTIONS AND CALLING FOR ASSISTANCE OOB PRN, VERBALIZE UNDERSTANDING.
--- NOTE | 2019-12-10 09:18 | NUR ---
ROUNDS MADE, PT LAYING ON R SIDE, SNORING OCCASIONALLY. RESP REGULAR AND UNLABORED, NO S/S OF DISTRESS NOTED. BED IN LOW POSITION WITH SRUP X2 CALL LIGHT AND PHONE WITHIN REACH. WILL CONTINUE TO MONITOR.
--- NOTE | 2019-12-10 10:38 | NUR ---
PT LAYING ON R SIDE, RESTING WITH EYES CLOSE, RESP REGULAR AND UNLABORED, NO S/S OF DISTRESS NOTED. PT NOT DISTURBED TO ALLOW FOR REST. BED IN LOW POSITION WITH SRUP X2. CALL LIGHT AND PHONE WITHIN REACH. WILL CONTINUE TO MONITOR.
--- NOTE | 2019-12-10 11:09 | NUR ---
SITTING IN SEMI-FOWLERS POSITION, WATCHING TV. REPORTS THAT PAIN IS MUCH RELIEVED. DENIES NEEDS. BED IN LOW POSITION WITH SRUP X2. CALL LIGHT AND PHONE WITHIN REACH. WILL CONTINUE TO MONITOR.
--- NOTE | 2019-12-10 11:48 | NUR ---
PT DYEHOUSE WORKER LIGHT. STATES "PAIN HAS WENT DOWN QUITE A BIT". COUPLE OF ICE CHIPS PROVIDED TO PT AT PT REQUEST.
--- NOTE | 2019-12-10 13:54 | NUR ---
DISCHARGE INSTRUCTIONS REVIEWED WITH PT, VERBALIZES UNDERSTANDING AND DENIES QUESTIONS. BLEEDING PRECAUTIONS REVIEWED WITH PT, VERBALIZES UNDERSTANDING. PT STATES THAT SHE IS TRYING TO GET IN TOUCH WITH FAMILY TO COME PICK HER UP.
--- NOTE | 2019-12-10 14:12 | NUR ---
PT REPORTS TO RN THAT SHE IS UNABLE TO GET IN TOUCH WITH FAMILY TO COME PICK HER UP FROM [facility] AT THIS TIME. LOLYD, FLIGHT READINESS TECHNICIAN CONTACTED, APPROVES TAXI FOR PT TO TAKE HOME ONCE, CLOTHING FROM ER IS REC'D FROM ER.
--- NOTE | 2019-12-10 14:18 | NUR ---
PT IN BR, BRIEF CHANGED, SCANT BRB NOTED IN BRIEF.
--- NOTE | 2019-12-10 14:21 | NUR ---
PT CALLS VIA CALL LIGHT, REPORTS TO RN THAT HER COUSIN IS NOW ABLE TO COME GET HER AND IS WAITING IN FRONT AT [facility]. DOCTOR OF NATUROPATHIC MEDICINE NOTIFIED, PT OFF UNIT IN W/C TO AWAITING VECHILE.
--- NOTE | 2019-12-10 18:34 | MORECARE ---
CASE MANAGEMENT DISCHARGE SUMMARY PATIENT: JACQUI SEGOVIA O UNIT: [id number] ADM DATE: 12/10/19 AGE: 29 : 89 SEX: F ROOM/BED: D.1278 AUTHOR: ROWENA MARISCAL PHYSICIAN: REFERRING PHYSICIAN: YOLANDA JAMA MD DATE OF SERVICE: 12/10/19 Discharge Plan Patient Name: JACQUI SEGOVIA Facility: [facility]:[place] : 1990 Planned Disposition: Home Anticipated Discharge Date: 12/10/19 Discharge Date: 12/10/2019 Expected LOS: 1 Initial Reviewer: [email or web address] Initial Review Date: 12/10/2019 Generated: 12/10/19 7:34 pm Patient Name: JACQUI SEGOVIA Page [id number] at 1834 All edits/amendments must be made on the electronic document DICTATION DATE: 12/10/191833 DIRECTOR OF HOME CARE HOSPICE: BAILEE 12/10/191833 RPT#: [id number] DC DATE:12/10/19 STATUS: DIS IN [facility] [address] [facility] [address] END OF REPORT
[2019-12-11] MEDS ORDERED: TYLENOL #4 W/CO1 TAB PO (08:18)
== END 2019-12-10 14:21 | disposition home or self-care (01) | DRG 770 ==
LOC: D.ER 22:19 → D.LD 12-10 00:43
PROVIDERS: Family Medicine; ADMIT Obstetrics & Gynecology; ATTEND Obstetrics & Gynecology
PROC: 10D17ZZ Extraction of Products of Conception, Retained, Via Natural or Artificial Opening (ICD-10-PCS; principal; 2019-12-10)
DX: O03.4 Incomplete spontaneous abortion without complication (principal); F14.10 Cocaine abuse, uncomplicated; F12.10 Cannabis abuse, uncomplicated

== ENCOUNTER 2019-12-10 15:34 | Outpatient (CLI) | payer SELFPAY ==
--- NOTE | 2019-12-10 15:20 | NUR ---
unknown [facility] employee presents to desk, panicked, stating "there's someone out in the hallway bleeding!", after questioning employee, pt was discharged from not too long ago, and presented back to the hospital. wheelchair taken to assist pt and employee. to labor and delivery.
--- NOTE | 2019-12-10 15:25 | NUR ---
pt presents in hallway at labor and delivery, with unknown escort, dr. sun on unit, triage report of pt's c/o of "was just discharged from [facility] and now i'm bleeding more and this shit hurts". report to md large vaginal bleeding noted with several dime sized clots noted on perineum. wants pt to bed in 1227, with vag tray available. md to room, speaking with pt. verbal order for d&e received. contacts surgery himself.
--- NOTE | 2019-12-10 15:30 | NUR ---
CONSENTS EXPLAINED TO AND SIGNED BY PT. PT VERBALIZES UNDERSTANDING OF ALL CONSENTS. PIV STARTED X 1 VENIPUNCTURE PER Vivek BEAR RN. LAB OBTAINED FROM SITE. LR INFUSING AT BOLUS RATE. SITE CLEAR. PT TOMASZ WELL.
--- NOTE | 2019-12-10 15:30 | NUR ---
20g cath to right ac x 1 attempt, flushed with 10 cc's ns, and taped in place.
[2019-12-10 15:33] VITALS: BP 106/68
--- NOTE | 2019-12-10 15:43 | NUR ---
PT TO OR VIA WHEELCHAIR PER OR STAFF.
--- NOTE | 2019-12-10 17:10 | NUR ---
received pt to unit by stretcher post d&c by dr. sun.
[2019-12-10 17:12] VITALS: BP 102/62
[2019-12-10 17:30] VITALS: BP 112/62
[2019-12-10 17:45] VITALS: BP 114/67
[2019-12-10 18:00] VITALS: BP 102/70
--- NOTE | 2019-12-10 18:40 | NUR ---
to pt's room, pt awakened from softly snoring, pt states "i am just so sleepy and would like to rest", pt is post spinal anesthesia, and has weakness to both legs, able to move both legs, but with considerable weakness. no bladder distenstion palpated. pericare done with warm wet washcloths, and foam cleanser. small amount of bleeding noted on peripad pt had when pt arrived to unit. pt denies wanting anything to drink at this time. srup x2, call light and phone within reach.
--- NOTE | 2019-12-10 19:00 | NUR ---
REPORT GIVEN BY TR DESAI
--- NOTE | 2019-12-10 20:00 | NUR ---
LOOKED IN ON PT. SHE IS SOUND ASLEEP. WILL FOLLOW UP WITH HER.
--- NOTE | 2019-12-10 21:30 | NUR ---
WENT IN TO CHECK ON PT. SHE IS AWAKE NOW. SHE IS BITTER STATING SHE LOST A CHILD AND HER GRANDMOTHER RECENTLY. SHE TELLS ME SHE DID NOT KNOW SHE WAS WHEN SHE MISCARRIED. PADS WERE CHANGED. ASSESSMENT COMPLETED. SHE REQUESTED A SPRITE WHICH WAS GIVEN TO HER. I ENCOURAGED HER TO DRING PLENTY OF FLUIDS. I HAVE NOT SEEN HER USE HER IS BUT THIS WAS ENCOURAGED, TOO. SHE STATES SHE IS GOING BACK TO BED NOW.
--- NOTE | 2019-12-10 21:40 | NUR ---
PT IS DISTRESSED BECAUSE SHE STILL CANNOT FEEL MOST OF HER LEGS. I TOLD HER THIS WOULD COME BACK. I HAD HER LAY FLAT DUE TO HAVING A SPINAL IN SURGERY. SHE IS NOW GOING TO SLEEP.
--- NOTE | 2019-12-10 22:00 | NUR ---
PT STATES SHE CANNOT GET A RIDE HOME UNTIL TOMORROW MORNING. SHE HAS TRIED TO REACH PEOPLE IN [place] BUT THEY EITHER DON'T ANSWER OR SAY THEY CANNOT COME TONIGHT. PT SAID IF WE WANTED TO D/C HER THAT SHE WOULD WAIT OUTSIDE. I TOLD HER SHE'D JUST STAY WITH US FOR THE NIGHT. SHE IS THANKFUL FOR STAYING HERE.
--- NOTE | 2019-12-10 22:30 | NUR ---
PT IS ASLEEP. NO C/O OR NEEDS
[2019-12-11] VITALS: BP 101/61
--- NOTE | 2019-12-11 | NUR ---
CHECKED IN ON PT. SHE IS STILL SPEEPING. SHE HAS AN IV IN RIGHT WRIST. HER FLUIDS ARE HANGING AND INFUSING SLOWLY.
--- NOTE | 2019-12-11 01:15 | NUR ---
PT REQUEST A MOTRIN FOR A PAIN LEVEL OF 6. THIS WAS GIVEN AND SHE TOOK THIS WITH HER SPRITE.
--- NOTE | 2019-12-11 01:30 | NUR ---
IN PT ROOM AGAIN. SHE IS AWAKE NOW. VS TAKEN. PT NOW CAN FEEL BOTH LEGS. I ASSISTED HER TO THE BR WHERE SHE VOIDED A LARGE AMOUNT. SHE HAD SWEATED AND A PARTIAL BED CHANGE WAS DONE AND SHE WAS GIVEN A NEW GOWN. HER PADS WERE CHANGED AND A ONE OF HER DISPOSIBLE PANTYS WERE PUT ON TO HOLD THE PAD IN PLACE. SHE HAS A SMALL AMOUNT OF BLEEDING. AFTER BED CHANGE SHE DECIDED TO GO BACK TO BED.
--- NOTE | 2019-12-11 02:00 | NUR ---
PT IS SLEEPING.
--- NOTE | 2019-12-11 04:40 | NUR ---
PT IS SLEEPING. NO C/O OR NEEDS AT THIS TIME
--- NOTE | 2019-12-11 07:30 | NUR ---
pt sitting up in bed, heard speaking loudly on cell phone, and then yells out to nurses desk, "hey come in now, i need to get dr. sun to discharge me maris because i got my boyfriend at home and he got my kids and i just need to get to my kids!" telephone call made to dr. sun, with report to pt is ready to be discharged home, and ready to go. explains he gave a discharge order yesterday, and will not write another order, as he put the orders in on pt's first encounter as pt did not completely leave the grounds from first discharge before coming back to [facility] for d&c.
--- NOTE | 2019-12-11 07:35 | NUR ---
pt denies heavy bleeding or passing clots, denies sob, difficulty breathing or n/v.
[2019-12-11] MEDS ORDERED: TYLENOL #4 W/CO1 TAB PO (08:18)
[2019-12-11 08:20] VITALS: BP 112/60
--- NOTE | 2019-12-11 08:35 | NUR ---
discharge instructions explained to pt, with copies provided for pt, along with post op discharge instructions. pt will continue with prescription for tylenol #4 as given on d/c yesterday, and pt already has follow up appt made from d/c yesterday. dr. sun does not want pt to take cytotec as prescription was also given on discharge yesterday, pt agrees. sl to right ac dc'd with cath intact. pt alec well. vss stable. pt dc'd in stable condition by wheelchair to front of hospital per pt's request to wait for her family member to get here to take her home.
--- NOTE | 2019-12-11 09:06 | OP ---
PATIENT NAME: JACQUI SEGOVIA MEDICAL RECORD: [id number] :89 LOCATION:[place] [address] ADMISSION DATE: SURGEON: YOLANDA JAMA MD DATE OF OPERATION: 12/10/2019 PREOPERATIVE DIAGNOSIS: Incomplete . POSTOPERATIVE DIAGNOSIS: Incomplete . PROCEDURE: Dilation and curettage with evacuation. SURGEON: Yolanda Jama MD ANESTHESIOLOGIST: Dr. Chakraborty. ANESTHESIA: Spinal. FINDINGS: Cervix is open with some products of conception at the cervical os. Minimal tissue inside uterus. Good cry obtained throughout. SPECIMENS REMOVED: Products of conception. SPECIMEN DISPOSITION: Pathology. ESTIMATED BLOOD LOSS: Minimal. FLUIDS: 500 cc lactated Ringer's. URINE OUTPUT: Quantity sufficient void prior to this procedure. COMPLICATIONS: None. DRAINS: None. INDICATIONS: The patient is a 29-year-old female who was seen in the Emergency Room last night for heavy vaginal bleeding and admitted for observation. The patient received Cytotec and pain management throughout the day. The patient had decreasing pain throughout the day and no bleeding was observed by nursing. The patient was discharged and upon discharge, began to have more severe cramping and went on to start to pass the products of conception. Due to the heavy vaginal bleeding, the patient was returned to the labor unit where she was preoped and a D&C followed. DESCRIPTION OF PROCEDURE: After informed consent was assured, the patient was taken to the operating room and spinal anesthetic was obtained. The patient was now prepped and draped. A speculum was introduced and the cervix visualized. The products of conception remained in the vault removed with ring forceps. The cervix is dilated and easily accommodates 7 curved curette and debris is removed. A #3 curette is now used to obtain good cry throughout. A single pass with the suction device removed all remaining clot and debris. Sponge, lap, needle counts were correct times 2. The patient is recovered and sent to the PACU. TRANSINT:[id number] Voice Confirmation ID: [id number] DOCUMENT ID: [id number] OPERATIVE REPORT [id number] JACQUI SEGOVIA YOLANDA JAMA MD at 0906 CC: [id number] DICTATION DATE: 12/10/19 1641 INFECTIOUS DISEASE TECHNICIAN: 12/10/19 1822 [facility] [address] [facility] [place] [address]
--- NOTE | 2019-12-11 18:02 | NUR ---
message left with admissions at [facility] 2413, n/a in medical records, and adm will forward message to housekeeping associate that dr. sun wants chart merged into [id number].
--- NOTE | 2019-12-11 18:04 | NUR ---
message left with admissions at [facility] [address] sun wants this chart merged with [id number], n/a in med records, as adm states she will forward message to household chores.
== END 2019-12-11 08:35 | disposition home or self-care (01) ==
LOC: D.LDO 15:34 → D.WS 17:00 → D.LDO 12-11 08:35
PROVIDERS: ATTEND Obstetrics & Gynecology
DX: O03.4 Incomplete spontaneous abortion without complication (principal)

== ENCOUNTER 2020-02-05 13:35 | Emergency (ER) | payer MEDICAID ==
[~2020-02-05] VITALS: Ht 170.2 cm; Wt 59.1 kg
[~2020-02-05 13:35] MED LIST changes: +TYLENOL #4 W/CO1 TAB PO
[2020-02-05 13:40] VITALS: BP 143/90; Ht 170.2 cm; Wt 59.1 kg
[2020-02-05] MEDS ORDERED: CYCLOBENZAPRINE5 MG PO (15:22)
== END 2020-02-05 15:54 | disposition home or self-care (01) ==
LOC: D.ER 13:35
DX: M79.5 Residual foreign body in soft tissue (principal); M25.561 Pain in right knee; V89.2XXA Person injured in unspecified motor-vehicle accident, traffic, initial encounter; Y93.9 Activity, unspecified; Y92.9 Unspecified place or not applicable